=== PATIENT | female | born 1995 | race Caucasian/White ===

== ENCOUNTER 2017-08-17 12:37 | Emergency (ER) | payer OTHER ==
[~2017-08-17] VITALS: Ht 157.5 cm; Wt 44.5 kg
--- NOTE | 2017-08-17 12:49 | PHYS DOC ---
Adult General Chief Complaint Chief Complaint: ABDOMINAL PAIN HPI HPI Patient is a 21 year old F who presents with upper abdominal pain since she at food last night. She also describes associated nausea and diarrhea. She is currently in the process of being worked up for GI issues. She states that she has infrequent bowel movements and a sensation of fullness in her abdomen. She did have tests pending for H. pylori. She has no other symptoms at this time. She has no other exacerbating or alleviating factors. Review of Systems Review of Systems Constitutional: Denies fever or chills [] Eyes: Denies change in visual acuity, redness, or eye pain [] HENT: Denies nasal congestion or sore throat [] Respiratory: Denies cough or shortness of breath [] Cardiovascular: No additional information not addressed in HPI [] GI: Negative except history of present illness : Denies dysuria or hematuria [] Musculoskeletal: Denies back pain or joint pain [] Integument: Denies rash or skin lesions [] Neurologic: Denies headache, focal weakness or sensory changes [] Endocrine: Denies polyuria or polydipsia [] All other systems were reviewed and found to be within normal limits, except as documented in this note. Family History Family History No pertinent family medical history was reported Current Medications Current Medications Current medications reviewed Allergies Allergies No known allergies Physical Exam Physical Exam Constitutional: Well developed, well nourished, no acute distress, non-toxic appearance. [] HENT: Normocephalic, atraumatic Eyes: EOMI, conjunctiva normal, no discharge. [] Neck: Normal range of motion, no tenderness, supple, no stridor. [] Cardiovascular:Heart rate regular rhythm, no murmur [] Lungs & Thorax: Bilateral breath sounds clear to auscultation [] Abdomen: Bowel sounds normal, soft, no masses, no pulsatile masses. [] Mild epigastric tenderness to palpation Skin: Warm, dry, no erythema, no rash. [] Extremities: No tenderness, no cyanosis, no clubbing, ROM intact, no edema. [] Neurologic: Alert and oriented X 3, normal motor function, normal sensory function, no focal deficits noted. [] Psychologic: Affect normal, judgement normal, mood normal. [] Current Patient Data Vital Signs Vital Signs Date Time Temp Pulse Resp B/P (MAP) Pulse Ox O2 Delivery O2 Flow Rate FiO2 4/30/18 13:23 94 16 109/71 (84) 97 Room Air 08/17/17 12:45 98.3 99 20 100 Room Air Lab Results Laboratory Tests Test 08/17/17 13:52 08/17/17 14:03 White Blood Count 7.6 x10^3/uL (4.0-11.0) Red Blood Count 4.44 x10^6/uL (3.50-5.40) Hemoglobin 13.8 g/dL (12.0-15.5) Hematocrit 40.5 % (36.0-47.0) Mean Corpuscular Volume 91 fL (79-100) Mean Corpuscular Hemoglobin 31 pg (25-35) Mean Corpuscular Hemoglobin Concent 34 g/dL (31-37) Red Cell Distribution Width 13.1 % (11.5-14.5) Platelet Count 241 x10^3/uL (140-400) Neutrophils (%) (Auto) 71 % (31-73) Lymphocytes (%) (Auto) 20 % (24-48) Monocytes (%) (Auto) 9 % (0-9) Eosinophils (%) (Auto) 1 % (0-3) Basophils (%) (Auto) 1 % (0-3) Neutrophils # (Auto) 5.4 x10^3uL (1.8-7.7) Lymphocytes # (Auto) 1.5 x10^3/uL (1.0-4.8) Monocytes # (Auto) 0.6 x10^3/uL (0.0-1.1) Eosinophils # (Auto) 0.0 x10^3/uL (0.0-0.7) Basophils # (Auto) 0.0 x10^3/uL (0.0-0.2) Sodium Level 140 mmol/L (136-145) Potassium Level 3.9 mmol/L (3.5-5.1) Chloride Level 105 mmol/L (98-107) Carbon Dioxide Level 25 mmol/L (21-32) Anion Gap 10 (6-14) Blood Urea Nitrogen 14 mg/dL (7-20) Creatinine 0.7 mg/dL (0.6-1.0) Estimated GFR (Cockcroft-Gault) 105.6 BUN/Creatinine Ratio 20 (6-20) Glucose Level 89 mg/dL (70-99) Calcium Level 8.7 mg/dL (8.5-10.1) Magnesium Level 2.2 mg/dL (1.8-2.4) Total Bilirubin 0.5 mg/dL (0.2-1.0) Aspartate Amino Transf (AST/SGOT) 17 U/L (15-37) Alanine Aminotransferase (ALT/SGPT) 19 U/L (14-59) Alkaline Phosphatase 50 U/L (46-116) Total Protein 7.2 g/dL (6.4-8.2) Albumin 3.7 g/dL (3.4-5.0) Albumin/Globulin Ratio 1.1 (1.0-1.7) Lipase 83 U/L (73-393) Urine Collection Type Unknown Urine Color Yellow Urine Clarity Clear Urine pH 6.0 Urine Specific [place] >=1.030 Urine Protein Trace (NEG-TRACE) Urine Glucose (UA) Neg mg/dL (NEG) Urine Ketones (Stick) Neg mg/dL (NEG) Urine Blood Neg (NEG) Urine Nitrite Neg (NEG) Urine Bilirubin Neg (NEG) Urine Urobilinogen Dipstick 0.2 mg/dL (0.2 mg/dL) Urine Leukocyte Esterase Neg (NEG) Urine RBC 0 /HPF (0-2) Urine WBC 0 /HPF (0-4) Urine Squamous Epithelial Cells Few /LPF Urine Bacteria 0 /HPF (0-FEW) Urine Mucus Marked /LPF EKG EKG [] Radiology/Procedures Radiology/Procedures [] Course & Med Decision Making Course & Med Decision Making Pertinent Labs and Imaging studies reviewed. (See chart for details) Her symptoms did improve with medication and IV fluids. Dragon Disclaimer Dragon Disclaimer This electronic medical record was generated, in whole or in part, using a voice recognition dictation system. Departure Departure: Impression: Primary Impression: Gastroenteritis Disposition: 01 HOME, SELF-CARE Condition: STABLE Patient Instructions: Viral Gastroenteritis Additional Instructions: Ana was seen in the emergency department for abdominal pain, nausea and diarrhea. No emergency medical condition was found on history or physical exam. She did have normal labs. Her symptoms did improve prior to discharge. She was encouraged to return to the emergency room if she develops new or worsening symptoms. She was also advised follow-up with her primary care doctor as needed for further management. RICKY RIVERA MD Aug 17, 2017 12:48
[2017-08-17] MEDS ORDERED: LIDO:MAALOX 1:1 20 ML SINGLE DOSE. PO ONE (13:15)
[2017-08-17] MEDS ORDERED: ONDANSETRON ODT 4 MG TAB.RAPDIS PO ONE (13:15)
[2017-08-17] MEDS ORDERED: IV NORMAL SALINE 1,000ML 1,000 ML IV ONE (14:00)
[2017-08-17 14:09] LABS: BASO % 1 % (0-3); EOS % 1 % (0-3); HEMATOCRIT 40.5 % (36.0-47.0); HEMOGLOBIN 13.8 g/dL (12.0-15.5); LYMPH # 1.5 x10^3/uL (1.0-4.8); LYMPH % 20 % (24-48); MEAN CORPUSCULAR HEMOGLOBIN 31 pg (25-35); MEAN CORPUSCULAR HGB CONC 34 g/dL (31-37); MEAN CORPUSCULAR VOLUME 91 fL (79-100); MONO # 0.6 x10^3/uL (0.0-1.1); MONO % 9 % (0-9); NEUT # 5.4 x10^3uL (1.8-7.7); NEUT % 71 % (31-73); PLATELET COUNT 241 x10^3/uL (140-400); RED BLOOD COUNT 4.44 x10^6/uL (3.50-5.40); RED CELL DISTRIBUTION WIDTH 13.1 % (11.5-14.5); WHITE BLOOD COUNT 7.6 x10^3/uL (4.0-11.0)
[2017-08-17 14:20] LABS: ALBUMIN 3.7 g/dL (3.4-5.0); ALBUMIN/GLOBULIN RATIO 1.1 (1.0-1.7); CALCIUM 8.7 mg/dL (8.5-10.1); CREATININE 0.7 mg/dL (0.6-1.0); GFR 105.6; MAGNESIUM 2.2 mg/dL (1.8-2.4); POTASSIUM 3.9 mmol/L (3.5-5.1); TOTAL BILIRUBIN 0.5 mg/dL (0.2-1.0); TOTAL PROTEIN 7.2 g/dL (6.4-8.2)
[2017-08-17 14:24] LABS: BILIRUBIN,URINE NEG (NEG); CLARITY,URINE CLEAR; COLOR,URINE YELLOW; GLUCOSE,URINE NEG (NEG); NITRITE,URINE NEG (NEG); RBC,URINE 0 /HPF (0-2); UROBILINOGEN,URINE 0.2 mg/dL (0.2 mg/dL); WBC,URINE 0 /HPF (0-4)
[2017-08-17 14:25] LABS: BACTERIA,URINE 0 /HPF (0-FEW); SQUAMOUS EPITHELIAL CELL,UR FEW /LPF
[2017-08-17 14:32] VITALS: BP 120/74
== END 2017-08-17 14:40 | disposition home or self-care (01) ==
LOC: ER 12:37
DX: K52.9 Noninfective gastroenteritis and colitis, unspecified (principal)
CPT/HCPCS: 36415; 80053; 81001; 83690; 83735; 85025; 99284; Q0162; J7030